=== PATIENT | female | born 1960 | race Caucasian/White ===

== ENCOUNTER 2021-08-15 19:30 | Emergency (ER) | payer BC ==
[~2021-08-15] VITALS: Ht 165.1 cm; Wt 70.0 kg
[2021-08-15 22:05] LABS: HEMOGLOBIN 14.5 g/dl (12.0-16.0); MEAN CELL VOLUME 91.8 fL CALC (80.0-100.0); MEAN CORPUSCULAR HGB 28.9 pG CALC (26.0-32.0); MEAN CORPUSCULAR HGB CONC 31.5 g/dL CAL (32.0-36.0); NEUT# 5.24 thou/uL (2.00-7.15); RED BLOOD COUNT 5.01 mill/uL (4.20-5.60); RED CELL DISTRI WIDTH 12.7 % (11.5-15.5)
[2021-08-15 23:35] VITALS: BP 159/84
== END 2021-08-15 23:35 | disposition home or self-care (01) | DRG 153 ==
LOC: ED 19:30
PROVIDERS: Family Medicine
DX: J06.9 Acute upper respiratory infection, unspecified (principal); I10 Essential (primary) hypertension; Z20.822 Contact with and (suspected) exposure to COVID-19